=== PATIENT | male | born 1950 | race Caucasian/White ===

== ENCOUNTER → 2019-07-04 | Outpatient (CLI) | payer MEDICARE, OTHER | LOC: COL.RAD 07-01 11:00 | DX: K44.9 Diaphragmatic hernia without obstruction or gangrene (principal) ==

== ENCOUNTER 2021-01-19 12:45 | Day surgery (SDC) | payer MEDICARE, OTHER ==
[2007-08-07 08:41] VITALS: BP 138/81
[~2021-01-19] VITALS: Ht 177.8 cm; Wt 76.5 kg
[2021-01-19 13:10] VITALS: BP 125/79; PULSE 60; TEMP 97.7
[2021-01-19] MEDS ORDERED: LIPITOR20 MG PO (13:51)
[2021-01-19] MEDS ORDERED: PRILOSEC10 MG PO (13:51)
[2021-01-19] MEDS ORDERED: METAMUCIL MUL0.52 GM PO (13:52)
[2021-01-19] MEDS ORDERED: ASPIRIN E.C. 8181 MG PO (13:52)
[2021-01-19] MEDS ORDERED: NORCO 325 MG-51 TAB PO (15:58)
[2021-01-19 16:30] VITALS: BP 107/57; PULSE 62; TEMP 98.4
--- NOTE | 2021-01-19 16:30 | NUR ---
Pt returns to [facility] from PACU, alert and oriented x3, VSS, dynamap in place. Pt complains of pain to abdomen 06/20. Pt given a diet pepsi and crackers per request. notified of pt's return. Call light in reach. 3 bandaids to abdomen clean and dry.
[2021-01-19 16:45] VITALS: BP 124/62; PULSE 61
--- NOTE | 2021-01-19 16:45 | NUR ---
Pt's to bedside. Pt reports slight increase in pain and would like a pain pill for the ride home. Tolerates crackers well and is given a muffin. Call light in reach.
[2021-01-19 17:00] VITALS: BP 123/73; PULSE 58
[2021-01-19 17:15] VITALS: BP 119/74; PULSE 61
--- NOTE | 2021-01-19 17:15 | NUR ---
Pt awake and alert and doing well, mild throat soreness, encouraged to drink water. Discharge instructions given to pt and his , understanding verbalized, post-op appointment made and pt will turkey picker pain medication at pharmacy on the way home.
--- NOTE | 2021-01-19 17:55 | NUR ---
Pt ambulates to the bathroom without difficulty, voids easily. Denies increase in pain, pain manageable at this time. IV discontinued to left hand. Pt taken via wheelchair to private car and left in care of his at this time.
== END 2021-01-19 17:55 | disposition home or self-care (01) ==
LOC: SDCO 12:45
DX: K40.20 Bilateral inguinal hernia, without obstruction or gangrene, not specified as recurrent (principal); K21.9 Gastro-esophageal reflux disease without esophagitis; K66.0 Peritoneal adhesions (postprocedural) (postinfection); E78.5 Hyperlipidemia, unspecified; E78.00 Pure hypercholesterolemia, unspecified; Z85.46 Personal history of malignant neoplasm of prostate; Z90.79 Acquired absence of other genital organ(s); Z79.82 Long term (current) use of aspirin; Z79.899 Other long term (current) drug therapy; Z82.49 Family history of ischemic heart disease and other diseases of the circulatory system
CPT/HCPCS: C1781; J0690; J1100; J2405; J2704; J3010; J7120